=== PATIENT | female | born 1945 | race African-American/Black ===

== ENCOUNTER 2018-05-09 11:13 | Emergency (ER) | payer OTHER ==
[~2018-05-09] VITALS: Ht 170.2 cm; Wt 80.0 kg
[2018-05-09] MEDS ORDERED: SODIUM CHLORIDE 0.9% 1,000 ML IV ONE ×2 (14:21→16:30)
[2018-05-09] MEDS ORDERED: ONDANSETRON HCL 4MG/2ML INJ IV STA (14:21)
[2018-05-09] MEDS ORDERED: MECLIZINE 25MG TABLET PO ONE ×2 (14:30→16:30)
[2018-05-09 15:02] LABS: BASOPHILS % 0.3 % (0.0-2.0); HEMOGLOBIN. 13.6 g/dL (12.0-16.0); LYMPHOCYTES % 10.7 % (20.0-50.0); MEAN CORPUSCULAR HEMOGLOBIN 30.8 pg (28.0-32.0); MEAN CORPUSCULAR VOLUME 92.7 fL (81.0-99.0); MEAN PLATELET VOLUME 9.7 fl (7.4-10.4); MONOCYTES % 3.8 % (2.0-8.0); NEUTROPHILS % 85.2 % (40.0-76.0); PLATELET 205 x1000/uL (130-400); RED BLOOD CELL COUNT 4.43 mill/uL (4.2-5.4); RED CELL DISTRIBUTION WIDTH 14.2 % (11.6-14.6)
[2018-05-09 15:04] LABS: CHLORIDE 107 mEq/L (98-107)
[2018-05-09] MEDS ORDERED: LORAZEPAM 1MG TABLET PO ONE (18:00)
[2018-05-09 19:25] VITALS: BP 162/89
== END 2018-05-09 20:18 | disposition short-term general hospital (02) ==
LOC: ER 11:13
DX: G90.8 Other disorders of autonomic nervous system (principal); R42 Dizziness and giddiness; I10 Essential (primary) hypertension; E78.00 Pure hypercholesterolemia, unspecified
CPT/HCPCS: 36415; 70450; 80053; 85025; 93005; 96361; 96374; 99285; J2405; J7030; J8597